=== PATIENT | male | born 2000 | race Caucasian/White ===

== ENCOUNTER 2024-02-11 11:04 | Emergency (ER) | payer MEDICAID ==
[~2024-02-11] VITALS: Ht 162.6 cm; Wt 56.7 kg
[2024-02-11 11:10] VITALS: BP_SYST 117; PULSE 85; RESP 18; TEMP 98.3; O2SAT 98
[2024-02-11 11:37] LABS: BASOPHILS % (AUTO) 0.3 % (0.0-2.0); EOSINOPHILS # (AUTO) 0.1 K/uL (0.0-0.4); EOSINOPHILS % (AUTO) 0.5 % (0.0-4.0); HEMATOCRIT 45.3 % (36-54); HEMOGLOBIN 15.4 g/dL (14.0-18.0); LYMPHOCYTES # (AUTO) 2.1 K/uL (1.0-5.5); LYMPHOCYTES % (AUTO) 20.1 % (20.5-51.5); MEAN CORPUSCULAR HEMOGLOBIN 29 pg (27-31); MEAN CORPUSCULAR HGB CONC 34 % (32-36); MEAN CORPUSCULAR VOLUME 84 fL (79.0-98.0); MONOCYTES # (AUTO) 0.8 K/uL (0.0-1.0); MONOCYTES % (AUTO) 7.5 % (1.7-9.3); NEUTROPHILS # (AUTO) 7.5 K/uL (1.8-7.7); NEUTROPHILS % (AUTO) 71.6 % (40.0-70.0); PLATELET COUNT (AUTO) 290 K/uL (130-430); RED BLOOD CELL COUNT(AUTO) 5.36 MIL/uL (4.2-6.2); RED CELL DISTRIBUTION WIDTH 13.1 % (9.0-15.0); WHITE BLOOD COUNT (AUTO) 10.5 K/uL (4.8-10.8)
[2024-02-11 11:54] LABS: ANION GAP 7 (5-15); CALCIUM 9.4 mg/dL (8.4-11.0); CARBON DIOXIDE 29 mmol/L (23-29); CHLORIDE 106 mmol/L (98-107); CREATININE 0.81 mg/dL (0.55-1.30); GFR AFRICAN AMERICAN 151 mL/min (>90); GFR NON AFRICAN-AMERICAN 124 mL/min (>90); GLUCOSE 82 mg/dL (74-106); POTASSIUM 3.8 mmol/L (3.5-5.1); SODIUM SERUM 142 mmol/L (136-145); UREA NITROGEN, BLOOD 9 mg/dL (8-21)
[2024-02-11] MEDS ORDERED: OMEP20CA15 PO (12:35)
[2024-02-11 12:46] VITALS: BP_SYST 130; PULSE 69; RESP 18; TEMP 98; O2SAT 97
== END 2024-02-11 12:45 | disposition home or self-care (01) ==
LOC: SED 11:04
DX: K20.90 Esophagitis, unspecified without bleeding (principal); Z79.899 Other long term (current) drug therapy
CPT/HCPCS: 36415; 71045; 80048; 84484; 85025; 93005; 99285